=== PATIENT | female | born 1935 | race African-American/Black ===

== ENCOUNTER 2018-03-11 08:40 | Emergency (ER) | payer OTHER, MEDICAID ==
[~2018-03-11] VITALS: Ht 162.6 cm; Wt 65.0 kg
[~2018-03-11 08:40] MED LIST: ALLOPURINOL; ASA; AZOR; COLCHICINE; HCTZ; LIPITOR; PLAQUENIL; PROTONIX; TRAMADOL
[2018-03-11] MEDS ORDERED: KETOROLAC 30MG/ML VIAL IM ONE (11:00)
[2018-03-11 11:54] VITALS: BP 116/54
== END 2018-03-11 11:55 | disposition home or self-care (01) ==
LOC: ER 09:50
DX: M10.9 Gout, unspecified (principal); I10 Essential (primary) hypertension; Z88.0 Allergy status to penicillin; Z88.6 Allergy status to analgesic agent; Z90.710 Acquired absence of both cervix and uterus; Z98.890 Other specified postprocedural states; Z87.891 Personal history of nicotine dependence; Z79.899 Other long term (current) drug therapy
CPT/HCPCS: 96372; 99283; J1885

== ENCOUNTER 2019-03-18 10:27 | Inpatient (IN) | payer OTHER, MEDICAID ==
[~2019-03-18] VITALS: Ht 162.6 cm; Wt 72.3 kg
[2019-03-18] MEDS ORDERED: ALBUTEROL (0.083%) 2.5MG/3ML NEB HHN STA (10:44)
[2019-03-18] MEDS ORDERED: METHYLPREDNISOLONE SOD SUCC 125 MG/2 ML VIAL IV STA (10:44)
[2019-03-18] MEDS ORDERED: IPRATROPIUM BROMIDE (0.02%) 0.5MG/2.5ML NEB HHN STA (10:44)
[2019-03-18] MEDS ORDERED: SODIUM CHLORIDE 0.9% 1000ML BAG (SEPSIS BOLUS) IV ONE (10:45)
[2019-03-18] MEDS ORDERED: LEVOFLOXACIN 750MG PREMIX 150 ML IV ONE (10:45)
[2019-03-18] MEDS ORDERED: ASPIRIN 81MG TABLET PO ONE (10:45)
[2019-03-18] MEDS ORDERED: NITROGLYCERIN OINT 1GM/INCH UDPKT TD ONE (11:45)
[2019-03-18] MEDS ORDERED: FUROSEMIDE 40MG/4ML VIAL IV ONE (11:45)
[2019-03-18 11:49] LABS: PROTHROMBIN TIME 10.6 sec (9.6-11.0)
[2019-03-18 11:54] LABS: BASOPHILS % 1.2 % (0.0-2.0); EOSINOPHILS % 2.9 % (0.0-5.0); HEMATOCRIT. 32.3 % (36.0-48.0); HEMOGLOBIN. 10.1 g/dL (12.0-16.0); LYMPHOCYTES % 15.1 % (20.0-50.0); MEAN CORPUSCULAR HEMOGLOBIN 22.1 pg (28.0-32.0); MEAN CORPUSCULAR VOLUME 70.5 fL (81.0-99.0); MEAN PLATELET VOLUME 10.9 fl (7.4-10.4); MONOCYTES % 7.1 % (2.0-8.0); NEUTROPHILS % 73.7 % (40.0-76.0); PLATELET 383 x1000/uL (130-400); RED BLOOD CELL COUNT 4.59 mill/uL (4.2-5.4); RED CELL DISTRIBUTION WIDTH 15.7 % (11.6-14.6)
[2019-03-18 11:59] LABS: CHLORIDE 106 mEq/L (98-107)
[2019-03-18] MEDS ORDERED: DIPHENHYDRAMINE 50MG/ML VIAL IV PRN (16:30)
[2019-03-18] MEDS ORDERED: ACETAMINOPHEN 325MG TABLET PO PRN ×2 (16:30→21:30)
[2019-03-18] MEDS ORDERED: HYDROCODONE/ACETAMINOPHEN 5/325MG TABLET PO PRN ×2 (16:30→21:30)
[2019-03-18] MEDS ORDERED: DILTIAZEM HCL 5MG/ML 5ML VIAL IV SCH (16:30)
[2019-03-18] MEDS ORDERED: LEVOFLOXACIN 500MG PREMIX 100 ML IV SCH (16:30)
[2019-03-18] MEDS ORDERED: DILTIAZEM HCL 125 MG in DEXT 5% WATER 100 ML IV PRN ×2 (16:30→22:30)
[2019-03-18] MEDS ORDERED: CLONIDINE 0.1MG TABLET PO PRN ×2 (16:30→23:30)
[2019-03-18] MEDS ORDERED: DOCUSATE SODIUM 100MG CAPSULE PO PRN (16:30)
[2019-03-18] MEDS ORDERED: IPRATROPIUM/ALBUTEROL 0.5-3(2.5)MG/3ML NEB NEB PRN (16:30)
[2019-03-18] MEDS ORDERED: ONDANSETRON HCL 4MG/2ML INJ IV PRN (16:30)
[2019-03-18] MEDS ORDERED: MAGNESIUM/ALUMINUM HYDROXIDE/SIMETHICONE 30ML UDC PO PRN (16:30)
[2019-03-18] MEDS ORDERED: DILTIAZEM HCL 5MG/ML 5ML VIAL IV ONE (16:30)
[2019-03-18 17:20] LABS: BG BASE EXCESS -7.3 mmol/L (-2.0-2.0); BG CARBOXYHEMOGLOBIN 0.7 % (0.5-1.5); BG DEOXYHEMOGLOBIN 3.8 % (0.0-5.0); BG FRACTION INSPIRED OXYGEN 21; BG HCO3 ACT 15.1 mmol/L (22.0-26.0); BG METHEMOGLOBIN 0.3 % (0.0-1.5); BG OXYGEN SATURATION 96.2 % (92.0-98.5); BG OXYHEMOGLOBIN 95.2 % (94.0-97.0); BG PCO2 22.3 mmHg (35.0-45.0); BG PH 7.449 (7.350-7.450); BG PO2 86.8 mmHg (75.0-100.0); BG SAMPLE SITE RIGHT RADIAL; BG TOTAL HEMOGLOBIN 10.7 g/dL (12.0-18.0); BG VENT MODE ROOM AIR
[2019-03-18 17:49] LABS: CLARITY URINE CLEAR (CLEAR); COLOR URINE YELLOW (YELLOW); KETONES URINE NEGATIVE (NEGATIVE); LEUKOCYTE ESTERASE URINE NEGATIVE (NEGATIVE); NITRITE URINE NEGATIVE (NEGATIVE); OCCULT BLOOD URINE NEGATIVE (NEGATIVE); PROTEIN URINE 1+ (NEGATIVE); SPECIFIC GRAVITY URINE 1.006 (1.005-1.030); UROBILINOGEN URINE 0.2 E.U./dL (0.2-1.0)
[2019-03-18 17:58] LABS: *AMPHETAMINES SCREEN URINE NEGATIVE (NEGATIVE); *BARBITURATES SCREEN URINE NEGATIVE (NEGATIVE); *BENZODIAZEPINES SCREEN URINE NEGATIVE (NEGATIVE); *COCAINE SCREEN URINE NEGATIVE (NEGATIVE)
[2019-03-18 18:00] LABS: CANNABINOID URINE SCREEN NEGATIVE (NEGATIVE); METHADONE URINE SCREEN NEGATIVE (NEGATIVE); OPIATES URINE SCREEN NEGATIVE (NEGATIVE); PHENCYCLIDINE URINE SCREEN NEGATIVE (NEGATIVE)
[2019-03-18 18:48] VITALS: BP 185/73
[2019-03-18 19:39] VITALS: BP 112/39
[2019-03-18 19:50] VITALS: BP 178/76
[2019-03-18 20:00] VITALS: BP 168/71
[2019-03-18] MEDS: IPRATROPIUM/ALBUTEROL 0.5-3(2.5)MG/3ML NEB NEB SCH (20:50)
[2019-03-18] MEDS: BUDESONIDE 0.5MG/2ML NEB HHN SCH (20:50)
[2019-03-18] MEDS ORDERED: NA PHOS,M-B/NA PHOS,DI-BA ENEMA 118ML PR PRN (21:00)
[2019-03-18] MEDS ORDERED: DEXTROSE 50% WATER 50ML SYRINGE IV PRN (21:27)
[2019-03-18] MEDS: BLOOD SUGAR DIAGNOSTIC STRIP TEST SCH (21:38)
[2019-03-18] MEDS: FAMOTIDINE 20MG/2ML VIAL IV SCH (21:45)
[2019-03-18] MEDS: INSULIN LISPRO 100 UNITS/ML SUBCUT SCH (21:47)
[2019-03-18] MEDS: METHYLPREDNISOLONE SOD SUCC 40 MG/ML VIAL IV SCH (21:50)
[2019-03-18] MEDS: FUROSEMIDE 40MG/4ML VIAL IV SCH (21:56)
[2019-03-18 22:00] VITALS: BP 188/85
[2019-03-18] MEDS: ENOXAPARIN 80MG/0.8ML SYR SUBCUT SCH (23:10)
[2019-03-18 23:31] VITALS: BP 176/72
[2019-03-18] MEDS: DILTIAZEM HCL 30MG TABLET PO SCH (23:33)
[2019-03-19] VITALS (17 sets, daily range): BP systolic 56–173; BP diastolic 28–78
[2019-03-19] MEDS: IPRATROPIUM/ALBUTEROL 0.5-3(2.5)MG/3ML NEB NEB SCH ×4 (02:13→19:59)
[2019-03-19] MEDS: BLOOD SUGAR DIAGNOSTIC STRIP TEST SCH ×4 (06:17→21:10)
[2019-03-19] MEDS: METHYLPREDNISOLONE SOD SUCC 40 MG/ML VIAL IV SCH ×3 (06:20→21:40)
[2019-03-19] MEDS: DILTIAZEM HCL 30MG TABLET PO SCH ×2 (06:21→12:30)
[2019-03-19 08:07] LABS: BASOPHILS % 0.2 % (0.0-2.0); HEMATOCRIT. 28.7 % (36.0-48.0); LYMPHOCYTES % 8.4 % (20.0-50.0); MEAN CORPUSCULAR VOLUME 70.3 fL (81.0-99.0); MEAN PLATELET VOLUME 10.7 fl (7.4-10.4); MONOCYTES % 3.5 % (2.0-8.0); NEUTROPHILS % 87.9 % (40.0-76.0); PLATELET 357 x1000/uL (130-400); RED BLOOD CELL COUNT 4.08 mill/uL (4.2-5.4); RED CELL DISTRIBUTION WIDTH 15.9 % (11.6-14.6)
[2019-03-19] MEDS: ASPIRIN 81MG EC TABLET PO SCH (08:38)
[2019-03-19] MEDS: FUROSEMIDE 40MG/4ML VIAL IV SCH ×2 (08:38→17:27)
[2019-03-19] MEDS: FAMOTIDINE 20MG/2ML VIAL IV SCH (08:38)
[2019-03-19] MEDS: INSULIN LISPRO 100 UNITS/ML SUBCUT SCH ×4 (08:39→21:37)
[2019-03-19 08:45] LABS: CHLORIDE 105 mEq/L (98-107)
[2019-03-19 08:52] LABS: HDL CHOLESTEROL 53 mg/dL (40-59)
[2019-03-19 09:00] LABS: LDL CHOLESTEROL 110 mg/dL (5-100)
[2019-03-19] MEDS ORDERED: LOSARTAN POTASSIUM 50 MG TABLET PO SCH (09:00)
[2019-03-19 09:01] LABS: CREATINE KINASE MB FRACTION 1.6 ng/mL (0.5-3.6)
[2019-03-19 09:02] LABS: CREATINE KINASE 158 IU/L (26-192); T4 FREE 1.09 ng/dL (0.76-1.46)
[2019-03-19] MEDS: BUDESONIDE 0.5MG/2ML NEB HHN SCH ×2 (09:14→20:00)
[2019-03-19] MEDS: LEVOFLOXACIN 250MG PREMIX 50 ML IV SCH (12:30)
[2019-03-19] MEDS ORDERED: TRAMADOL 50MG TABLET PO PRN (13:45)
[2019-03-19] MEDS ORDERED: REGADENOSON 0.4 MG/5 ML IV NR (13:45)
[2019-03-19] MEDS: DILTIAZEM HCL 60MG TABLET PO SCH ×2 (15:42→21:41)
[2019-03-19] MEDS ORDERED: ASPI-1393 PO (17:20)
[2019-03-19] MEDS ORDERED: AMLO5TAB88 PO (17:20)
[2019-03-19] MEDS ORDERED: VALS1TAB78 PO (17:20)
[2019-03-19] MEDS ORDERED: ATOR40TA70 PO (17:20)
[2019-03-19] MEDS: GUAIFENESIN 200MG/10ML SUGAR FREE UDC PO PRN (21:08)
[2019-03-19] MEDS: ENOXAPARIN 80MG/0.8ML SYR SUBCUT SCH (21:10)
[2019-03-19 21:48] LABS: CREATINE KINASE MB FRACTION 2.6 ng/mL (0.5-3.6)
[2019-03-20] VITALS (11 sets, daily range): BP systolic 123–159; BP diastolic 40–75
[2019-03-20] MEDS: DEXT 5%/0.45% NACL 1000ML 1,000 ML IV SCH ×2 (00:15→17:09)
[2019-03-20] MEDS: IPRATROPIUM/ALBUTEROL 0.5-3(2.5)MG/3ML NEB NEB SCH ×4 (01:45→20:30)
[2019-03-20 05:53] LABS: HEMATOCRIT. 27.9 % (36.0-48.0); HEMOGLOBIN. 8.7 g/dL (12.0-16.0); MEAN CORPUSCULAR HEMOGLOBIN 21.9 pg (28.0-32.0); MEAN CORPUSCULAR VOLUME 70.6 fL (81.0-99.0); MEAN PLATELET VOLUME 10.6 fl (7.4-10.4); PLATELET 341 x1000/uL (130-400); RED BLOOD CELL COUNT 3.95 mill/uL (4.2-5.4); RED CELL DISTRIBUTION WIDTH 15.6 % (11.6-14.6)
[2019-03-20] MEDS: DILTIAZEM HCL 60MG TABLET PO SCH (06:00)
[2019-03-20] MEDS: METHYLPREDNISOLONE SOD SUCC 40 MG/ML VIAL IV SCH ×3 (07:01→21:46)
[2019-03-20] MEDS: BLOOD SUGAR DIAGNOSTIC STRIP TEST SCH ×4 (07:06→21:46)
[2019-03-20] MEDS: INSULIN LISPRO 100 UNITS/ML SUBCUT SCH ×4 (07:06→21:00)
[2019-03-20] MEDS: BUDESONIDE 0.5MG/2ML NEB HHN SCH ×2 (07:42→20:30)
[2019-03-20] MEDS: FAMOTIDINE 20MG/2ML VIAL IV SCH (09:00)
[2019-03-20] MEDS: ASPIRIN 81MG EC TABLET PO SCH (09:00)
[2019-03-20 09:43] LABS: PLATELET ESTIMATE NORMAL
[2019-03-20] MEDS ORDERED: REGADENOSON 0.4 MG/5 ML IV ONE (11:37)
[2019-03-20] MEDS: LEVOFLOXACIN 250MG PREMIX 50 ML IV SCH (12:00)
[2019-03-20] MEDS: DILTIAZEM HCL 30MG TABLET PO SCH ×2 (14:55→21:46)
[2019-03-20] MEDS: ATORVASTATIN CALCIUM 40MG TABLET PO SCH (21:45)
[2019-03-20] MEDS: ENOXAPARIN 30MG/0.3ML SYR SUBCUT SCH (21:45)
[2019-03-21] VITALS (25 sets, daily range): BP systolic 93–172; BP diastolic 41–84
[2019-03-21] MEDS: DEXT 5%/0.45% NACL 1000ML 1,000 ML IV SCH ×2 (02:13→15:33)
[2019-03-21] MEDS: IPRATROPIUM/ALBUTEROL 0.5-3(2.5)MG/3ML NEB NEB SCH ×4 (02:24→21:14)
[2019-03-21] MEDS: METHYLPREDNISOLONE SOD SUCC 40 MG/ML VIAL IV SCH ×3 (06:10→21:23)
[2019-03-21] MEDS: DILTIAZEM HCL 30MG TABLET PO SCH ×3 (06:10→21:24)
[2019-03-21] MEDS: BLOOD SUGAR DIAGNOSTIC STRIP TEST SCH ×4 (06:41→20:59)
[2019-03-21] MEDS: INSULIN LISPRO 100 UNITS/ML SUBCUT SCH ×4 (07:20→20:48)
[2019-03-21 07:26] LABS: HEMATOCRIT. 27.2 % (36.0-48.0); HEMOGLOBIN. 8.5 g/dL (12.0-16.0); MEAN CORPUSCULAR HEMOGLOBIN 22.1 pg (28.0-32.0); MEAN CORPUSCULAR VOLUME 70.8 fL (81.0-99.0); PLATELET 300 x1000/uL (130-400); RED BLOOD CELL COUNT 3.84 mill/uL (4.2-5.4); RED CELL DISTRIBUTION WIDTH 15.5 % (11.6-14.6)
[2019-03-21] MEDS: BUDESONIDE 0.5MG/2ML NEB HHN SCH ×2 (07:32→21:13)
[2019-03-21] MEDS: ASPIRIN 81MG EC TABLET PO SCH (09:25)
[2019-03-21] MEDS: GUAIFENESIN 200MG/10ML SUGAR FREE UDC PO PRN (09:25)
[2019-03-21] MEDS: LORAZEPAM 0.5MG TABLET PO PRN ×2 (09:26→15:30)
[2019-03-21] MEDS: FAMOTIDINE 20MG/2ML VIAL IV SCH (09:28)
[2019-03-21] MEDS ORDERED: MIDODRINE HCL 2.5MG TABLET PO NR (10:00)
[2019-03-21] MEDS: LEVOFLOXACIN 250MG PREMIX 50 ML IV SCH (12:55)
[2019-03-21 13:26] LABS: PLATELET ESTIMATE NORMAL
[2019-03-21] MEDS: CLOPIDOGREL 75MG TABLET PO SCH (17:55)
[2019-03-21] MEDS: MIDODRINE HCL 2.5MG TABLET PO SCH (17:56)
[2019-03-21] MEDS: ATORVASTATIN CALCIUM 40MG TABLET PO SCH (20:58)
[2019-03-21] MEDS: ENOXAPARIN 30MG/0.3ML SYR SUBCUT SCH (20:59)
[2019-03-22] VITALS (9 sets, daily range): BP systolic 108–158; BP diastolic 53–77
[2019-03-22] MEDS: IPRATROPIUM/ALBUTEROL 0.5-3(2.5)MG/3ML NEB NEB SCH ×3 (01:56→14:13)
[2019-03-22] MEDS: DEXT 5%/0.45% NACL 1000ML 1,000 ML IV SCH (04:49)
[2019-03-22] MEDS: DILTIAZEM HCL 30MG TABLET PO SCH ×2 (06:29→12:37)
[2019-03-22] MEDS: BLOOD SUGAR DIAGNOSTIC STRIP TEST SCH ×2 (06:37→12:42)
[2019-03-22 07:26] LABS: HEMATOCRIT. 27.1 % (36.0-48.0); HEMOGLOBIN. 8.5 g/dL (12.0-16.0); MEAN CORPUSCULAR HEMOGLOBIN 22.1 pg (28.0-32.0); MEAN CORPUSCULAR VOLUME 70.3 fL (81.0-99.0); RED BLOOD CELL COUNT 3.85 mill/uL (4.2-5.4); RED CELL DISTRIBUTION WIDTH 15.4 % (11.6-14.6)
[2019-03-22 08:13] LABS: CHLORIDE 102 mEq/L (98-107)
[2019-03-22] MEDS: METHYLPREDNISOLONE SOD SUCC 40 MG/ML VIAL IV SCH (08:15)
[2019-03-22] MEDS: ASPIRIN 81MG EC TABLET PO SCH (08:17)
[2019-03-22] MEDS: MIDODRINE HCL 2.5MG TABLET PO SCH (08:17)
[2019-03-22] MEDS: GUAIFENESIN 200MG/10ML SUGAR FREE UDC PO PRN (08:17)
[2019-03-22] MEDS: CLOPIDOGREL 75MG TABLET PO SCH (08:17)
[2019-03-22] MEDS: INSULIN LISPRO 100 UNITS/ML SUBCUT SCH ×2 (08:19→12:37)
[2019-03-22 08:51] LABS: PLATELET 296 x1000/uL (130-400)
[2019-03-22 08:54] LABS: PLATELET ESTIMATE NORMAL
[2019-03-22] MEDS ORDERED: FAMOTIDINE 20MG TABLET PO SCH (09:00)
[2019-03-22] MEDS: BUDESONIDE 0.5MG/2ML NEB HHN SCH (10:34)
[2019-03-22] MEDS ORDERED: LEVOFLOXACIN 250MG TABLET PO SCH (12:00)
[2019-03-22] MEDS ORDERED: ALBU18HF2 IH (14:46)
[2019-03-22] MEDS ORDERED: LIP40 MT (14:46)
[2019-03-22] MEDS ORDERED: ASPI-1393 MT (14:46)
[2019-03-22] MEDS ORDERED: P20 PO (14:46)
[2019-03-22] MEDS ORDERED: CLOP75TA4 MT (14:46)
[2019-03-22] MEDS ORDERED: FAMO-135 MT (14:46)
[2019-03-22] MEDS ORDERED: PRED10TA MT (14:46)
[2019-03-22] MEDS ORDERED: P20 MT (14:46)
[2019-03-22] MEDS ORDERED: DILT30TA38 MT (14:59)
[2019-03-22] MEDS ORDERED: ENOXAPARIN 40MG/0.4ML SYR SUBCUT SCH (21:00)
== END 2019-03-22 16:55 | disposition home or self-care (01) | DRG 682 ==
LOC: ER 13:40 → 3WST 13:53 → ENRESERV 14:47 → SUPCPDRO 15:12
PROVIDERS: ADMIT Internal Medicine; ATTEND Internal Medicine
DX: N17.9 Acute kidney failure, unspecified (principal); I50.43 Acute on chronic combined systolic (congestive) and diastolic (congestive) heart failure; R65.10 Systemic inflammatory response syndrome (SIRS) of non-infectious origin without acute organ dysfunction; J45.901 Unspecified asthma with (acute) exacerbation; E87.3 Alkalosis; I31.3 Pericardial effusion (noninflammatory); I11.0 Hypertensive heart disease with heart failure; D63.8 Anemia in other chronic diseases classified elsewhere; E78.5 Hyperlipidemia, unspecified; I34.0 Nonrheumatic mitral (valve) insufficiency; I48.91 Unspecified atrial fibrillation; E11.9 Type 2 diabetes mellitus without complications; I27.20 Pulmonary hypertension, unspecified; I95.1 Orthostatic hypotension; M10.9 Gout, unspecified; J44.9 Chronic obstructive pulmonary disease, unspecified; I25.10 Atherosclerotic heart disease of native coronary artery without angina pectoris; Z86.73 Personal history of transient ischemic attack (TIA), and cerebral infarction without residual deficits; Z90.710 Acquired absence of both cervix and uterus; Z90.5 Acquired absence of kidney; Z79.4 Long term (current) use of insulin; Z79.899 Other long term (current) drug therapy; Z85.528 Personal history of other malignant neoplasm of kidney; Z87.891 Personal history of nicotine dependence; Z90.49 Acquired absence of other specified parts of digestive tract; Z88.0 Allergy status to penicillin; Z88.5 Allergy status to narcotic agent; Z88.1 Allergy status to other antibiotic agents
CPT/HCPCS: 36415; 36600; 71045; 71250; 76770; 78452; 78582; 80048; 80061; 80305; 81003; 82375; 82550; 82553; 82728; 82805; 82962; 83036; 83540; 83550; 83605; 83880; 84145; 84439; 84443; 84481; 84484; 84550; 87804; 93005; 93017; 93306; 93880; 93970; 94618; 94640; 94644; 99285; A9500; A9558; J1650; J1815; J1940; J1956; J2405; J2785; J2920; J2930; J3490; J7030; J7611; J7620; J7626

== ENCOUNTER 2019-03-23 09:46 | Inpatient (IN) | payer OTHER, MEDICAID ==
[~2019-03-23] VITALS: Ht 162.6 cm; Wt 69.9 kg
[~2019-03-23 09:46] MED LIST changes: +ALBU18HF2 IH; -ALLOPURINOL; +AMLO5TAB88 PO; -ASA; +ASPI-1393 MT; +ASPI-1393 PO; +ATOR40TA70 PO; -AZOR; +CLOP75TA4 MT; -COLCHICINE; +DILT30TA38 MT; +FAMO-135 MT; -HCTZ; +LIP40 MT; -LIPITOR; +P20 MT; +P20 PO; -PLAQUENIL; +PRED10TA MT; -PROTONIX; -TRAMADOL; +VALS1TAB78 PO
[2019-03-23 10:30] LABS: BG BASE EXCESS 2.2 mmol/L (-2.0-2.0); BG CARBOXYHEMOGLOBIN 0.3 % (0.5-1.5); BG FRACTION INSPIRED OXYGEN 28; BG HCO3 ACT 26.2 mmol/L (22.0-26.0); BG METHEMOGLOBIN 0.3 % (0.0-1.5); BG OXYHEMOGLOBIN 96.4 % (94.0-97.0); BG PCO2 38.2 mmHg (35.0-45.0); BG PH 7.454 (7.350-7.450); BG PO2 88.3 mmHg (75.0-100.0); BG SAMPLE SITE RIGHT RADIAL; BG VENT MODE NASAL CANNULA
[2019-03-23 12:27] LABS: BASOPHILS % 0.3 % (0.0-2.0); EOSINOPHILS % 0.5 % (0.0-5.0); HEMATOCRIT. 29.6 % (36.0-48.0); HEMOGLOBIN. 9.1 g/dL (12.0-16.0); LYMPHOCYTES % 9.2 % (20.0-50.0); MEAN CORPUSCULAR HEMOGLOBIN 21.4 pg (28.0-32.0); MEAN CORPUSCULAR VOLUME 69.6 fL (81.0-99.0); MEAN PLATELET VOLUME 10.2 fl (7.4-10.4); MONOCYTES % 8.3 % (2.0-8.0); NEUTROPHILS % 81.7 % (40.0-76.0); PLATELET 316 x1000/uL (130-400); RED BLOOD CELL COUNT 4.25 mill/uL (4.2-5.4); RED CELL DISTRIBUTION WIDTH 15.5 % (11.6-14.6)
[2019-03-23 12:33] LABS: CHLORIDE 104 mEq/L (98-107)
[2019-03-23] MEDS ORDERED: FUROSEMIDE 20MG/2ML VIAL IVP ONE (13:30)
[2019-03-23 14:06] LABS: PLATELET ESTIMATE NORMAL
[2019-03-23] MEDS ORDERED: CLONIDINE 0.1MG TABLET PO PRN (15:45)
[2019-03-23 16:00] VITALS: BP 114/74
[2019-03-23 17:27] VITALS: BP 139/67
[2019-03-23] MEDS: DILTIAZEM HCL 30MG TABLET PO SCH (18:35)
[2019-03-23] MEDS: METHYLPREDNISOLONE SOD SUCC 40 MG/ML VIAL IV SCH (18:35)
[2019-03-23 20:00] VITALS: BP 121/78
[2019-03-24] VITALS (7 sets, daily range): BP systolic 95–144; BP diastolic 47–94
[2019-03-24] MEDS: BUDESONIDE 0.5MG/2ML NEB HHN SCH ×3 (00:34→20:20)
[2019-03-24] MEDS: IPRATROPIUM/ALBUTEROL 0.5-3(2.5)MG/3ML NEB HHN PRN ×2 (00:35→20:21)
[2019-03-24] MEDS: DILTIAZEM HCL 30MG TABLET PO SCH ×4 (05:36→18:04)
[2019-03-24] MEDS ORDERED: CLOPIDOGREL 75MG TABLET PO SCH (09:00)
[2019-03-24] MEDS: METHYLPREDNISOLONE SOD SUCC 40 MG/ML VIAL IV SCH (09:15)
[2019-03-24] MEDS ORDERED: LEVOFLOXACIN 500MG TABLET PO SCH (11:00)
[2019-03-24] MEDS ORDERED: FUROSEMIDE 20MG/2ML VIAL IVP NR (11:45)
[2019-03-24] MEDS ORDERED: ALPRAZOLAM 0.5 MG TABLET PO NR (11:45)
[2019-03-24 15:51] LABS: HEMATOCRIT. 30.9 % (36.0-48.0); HEMOGLOBIN. 9.6 g/dL (12.0-16.0); MEAN CORPUSCULAR HEMOGLOBIN 21.7 pg (28.0-32.0); MEAN CORPUSCULAR VOLUME 69.9 fL (81.0-99.0); PLATELET 336 x1000/uL (130-400); RED BLOOD CELL COUNT 4.42 mill/uL (4.2-5.4); RED CELL DISTRIBUTION WIDTH 15.5 % (11.6-14.6)
[2019-03-24 16:48] LABS: PLATELET ESTIMATE NORMAL
[2019-03-25] MEDS ORDERED: LEVOFLOXACIN 250MG TABLET PO SCH (11:00)
== END 2019-03-24 21:55 | DRG 189 ==
LOC: ER 09:46 → 5WST 13:17 → EDBEDREQ 13:38 → ENRESERV 14:02
PROVIDERS: ADMIT Internal Medicine; ATTEND Internal Medicine
DX: J96.00 Acute respiratory failure, unspecified whether with hypoxia or hypercapnia (principal); I50.33 Acute on chronic diastolic (congestive) heart failure; J44.1 Chronic obstructive pulmonary disease with (acute) exacerbation; I11.0 Hypertensive heart disease with heart failure; I25.10 Atherosclerotic heart disease of native coronary artery without angina pectoris; E11.9 Type 2 diabetes mellitus without complications; I27.20 Pulmonary hypertension, unspecified; T38.0X5A Adverse effect of glucocorticoids and synthetic analogues, initial encounter; I65.29 Occlusion and stenosis of unspecified carotid artery; I48.0 Paroxysmal atrial fibrillation; Z79.02 Long term (current) use of antithrombotics/antiplatelets; Z90.5 Acquired absence of kidney; Z90.710 Acquired absence of both cervix and uterus; Y92.89 Other specified places as the place of occurrence of the external cause
CPT/HCPCS: 36415; 36600; 71045; 80048; 82375; 82805; 83880; 84484; 93005; 94640; 96374; 97162; 99291; J1940; J2920; J7620; J7626

== ENCOUNTER 2019-04-11 13:35 | Inpatient (IN) | payer OTHER, MEDICAID ==
[~2019-04-11] VITALS: Ht 162.6 cm; Wt 67.1 kg
[2019-04-11] MEDS ORDERED: SODIUM CHLORIDE 0.9% 1,000 ML IV ONE (14:01)
[2019-04-11 14:39] LABS: BASOPHILS % 0.2 % (0.0-2.0); EOSINOPHILS % 0.6 % (0.0-5.0); HEMATOCRIT. 25.6 % (36.0-48.0); HEMOGLOBIN. 8.3 g/dL (12.0-16.0); LYMPHOCYTES % 12.5 % (20.0-50.0); MEAN CORPUSCULAR HEMOGLOBIN 22.4 pg (28.0-32.0); MONOCYTES % 11.9 % (2.0-8.0); NEUTROPHILS % 74.8 % (40.0-76.0); PLATELET 255 x1000/uL (130-400); RED BLOOD CELL COUNT 3.71 mill/uL (4.2-5.4); RED CELL DISTRIBUTION WIDTH 17.7 % (11.6-14.6)
[2019-04-11 14:46] LABS: CHLORIDE 103 mEq/L (98-107); PROTHROMBIN TIME 10.6 sec (9.6-11.0)
[2019-04-11 15:22] LABS: PLATELET ESTIMATE NORMAL
[2019-04-11 15:50] LABS: CLARITY URINE CLEAR (CLEAR); COLOR URINE YELLOW (YELLOW); KETONES URINE NEGATIVE (NEGATIVE); LEUKOCYTE ESTERASE URINE 2+ (NEGATIVE); NITRITE URINE NEGATIVE (NEGATIVE); OCCULT BLOOD URINE NEGATIVE (NEGATIVE); PH URINE 7.5 (4.5-8.0); PROTEIN URINE 2+ (NEGATIVE); SPECIFIC GRAVITY URINE 1.013 (1.005-1.030); UROBILINOGEN URINE 0.2 E.U./dL (0.2-1.0)
[2019-04-11] MEDS ORDERED: LEVOFLOXACIN 750MG PREMIX 150 ML IV ONE (16:15)
[2019-04-11] MEDS ORDERED: NITROGLYCERIN OINT 1GM/INCH UDPKT TD ONE (16:15)
[2019-04-11] MEDS ORDERED: ACETAMINOPHEN 650MG SUPP PR PRN (16:30)
[2019-04-11] MEDS ORDERED: DOCUSATE SODIUM 100MG CAPSULE PO PRN (16:30)
[2019-04-11] MEDS ORDERED: IPRATROPIUM/ALBUTEROL 0.5-3(2.5)MG/3ML NEB NEB PRN (16:30)
[2019-04-11] MEDS ORDERED: LORAZEPAM 0.5MG TABLET PO PRN (16:30)
[2019-04-11] MEDS ORDERED: DIPHENHYDRAMINE 50MG/ML VIAL IV PRN (16:30)
[2019-04-11] MEDS ORDERED: LEVOFLOXACIN 500MG PREMIX 100 ML IV SCH (16:30)
[2019-04-11] MEDS ORDERED: ONDANSETRON HCL 4MG/2ML INJ IV PRN (16:30)
[2019-04-11] MEDS ORDERED: CLONIDINE 0.1MG TABLET PO PRN (16:30)
[2019-04-11] MEDS ORDERED: GUAIFENESIN 200MG/10ML SUGAR FREE UDC PO PRN (16:30)
[2019-04-11] MEDS ORDERED: MAGNESIUM/ALUMINUM HYDROXIDE/SIMETHICONE 30ML UDC PO PRN (16:30)
[2019-04-11] MEDS ORDERED: HYDROCODONE/ACETAMINOPHEN 5/325MG TABLET PO PRN (16:30)
[2019-04-11] MEDS ORDERED: NA PHOS,M-B/NA PHOS,DI-BA ENEMA 118ML PR PRN (16:30)
[2019-04-11] MEDS ORDERED: ACETAMINOPHEN 325MG TABLET PO PRN (16:30)
[2019-04-11 16:59] LABS: BG BASE EXCESS 0.7 mmol/L (-2.0-2.0); BG CARBOXYHEMOGLOBIN 0.2 % (0.5-1.5); BG DEOXYHEMOGLOBIN 1.5 % (0.0-5.0); BG FRACTION INSPIRED OXYGEN 28; BG HCO3 ACT 24.2 mmol/L (22.0-26.0); BG METHEMOGLOBIN 0.3 % (0.0-1.5); BG OXYGEN SATURATION 98.5 % (92.0-98.5); BG PCO2 34.3 mmHg (35.0-45.0); BG PH 7.467 (7.350-7.450); BG PO2 118.7 mmHg (75.0-100.0); BG SAMPLE SITE RIGHT BRACHIAL; BG TOTAL HEMOGLOBIN 8.6 g/dL (12.0-18.0); BG VENT MODE NASAL CANNULA
[2019-04-11] MEDS ORDERED: DEXTROSE 50% WATER 50ML SYRINGE IV PRN (17:30)
[2019-04-11] MEDS ORDERED: ASPIRIN 325MG EC TABLET PO ONE (19:00)
[2019-04-11] MEDS ORDERED: IPRATROPIUM/ALBUTEROL 0.5-3(2.5)MG/3ML NEB NEB SCH (19:00)
[2019-04-11] MEDS: METHYLPREDNISOLONE SOD SUCC 40 MG/ML VIAL IV SCH (19:00)
[2019-04-11] MEDS: BLOOD SUGAR DIAGNOSTIC STRIP TEST SCH (21:00)
[2019-04-11] MEDS: INSULIN LISPRO 100 UNITS/ML SUBCUT SCH (21:30)
[2019-04-11 22:00] VITALS: BP 122/77
[2019-04-11] MEDS ORDERED: FAMOTIDINE 20MG TABLET PO SCH (22:00)
[2019-04-11] MEDS ORDERED: P20 PO (22:36)
[2019-04-11] MEDS ORDERED: SENN-170 PO (22:36)
[2019-04-11] MEDS ORDERED: PULM25 HHN (22:36)
[2019-04-11] MEDS ORDERED: FERR325T6 PO (22:36)
[2019-04-11] MEDS ORDERED: DOCU-150 PO (22:36)
[2019-04-11 22:44] VITALS: BP 122/77
[2019-04-12] VITALS (7 sets, daily range): BP systolic 103–172; BP diastolic 62–81
[2019-04-12] MEDS ORDERED: BUDESONIDE 0.5MG/2ML NEB HHN SCH
[2019-04-12 00:52] LABS: CREATINE KINASE 48 IU/L (26-192)
[2019-04-12 01:30] LABS: CREATINE KINASE MB FRACTION < 1.0 ng/mL (0.5-3.6)
[2019-04-12] MEDS: METHYLPREDNISOLONE SOD SUCC 40 MG/ML VIAL IV SCH ×2 (03:13→13:42)
[2019-04-12] MEDS: BLOOD SUGAR DIAGNOSTIC STRIP TEST SCH ×2 (06:17→12:25)
[2019-04-12] MEDS: INSULIN LISPRO 100 UNITS/ML SUBCUT SCH ×2 (06:30→12:40)
[2019-04-12 07:32] LABS: HEMATOCRIT. 25.2 % (36.0-48.0); MEAN CORPUSCULAR HEMOGLOBIN 22.3 pg (28.0-32.0); MEAN CORPUSCULAR VOLUME 70.1 fL (81.0-99.0); MEAN PLATELET VOLUME 9.4 fl (7.4-10.4); PLATELET 259 x1000/uL (130-400); RED BLOOD CELL COUNT 3.59 mill/uL (4.2-5.4); RED CELL DISTRIBUTION WIDTH 17.5 % (11.6-14.6)
[2019-04-12 07:58] LABS: CHLORIDE 104 mEq/L (98-107)
[2019-04-12 08:13] LABS: CREATINE KINASE 44 IU/L (26-192); LDL CHOLESTEROL 92 mg/dL (5-100)
[2019-04-12 08:14] LABS: CREATINE KINASE MB FRACTION < 1.0 ng/mL (0.5-3.6); HDL CHOLESTEROL 74 mg/dL (40-59); T4 FREE 0.89 ng/dL (0.76-1.46)
[2019-04-12 08:23] LABS: *BARBITURATES SCREEN URINE NEGATIVE (NEGATIVE); *BENZODIAZEPINES SCREEN URINE NEGATIVE (NEGATIVE); *COCAINE SCREEN URINE NEGATIVE (NEGATIVE)
[2019-04-12 08:24] LABS: *AMPHETAMINES SCREEN URINE NEGATIVE (NEGATIVE); CANNABINOID URINE SCREEN NEGATIVE (NEGATIVE); OPIATES URINE SCREEN NEGATIVE (NEGATIVE); PHENCYCLIDINE URINE SCREEN NEGATIVE (NEGATIVE)
[2019-04-12 08:30] LABS: METHADONE URINE SCREEN NEGATIVE (NEGATIVE)
[2019-04-12] MEDS ORDERED: ASPIRIN 81MG TABLET PO SCH (09:00)
[2019-04-12 11:43] LABS: PLATELET ESTIMATE NORMAL
[2019-04-12 13:02] LABS: HEMATOCRIT 23.9 % (36.0-48.0); HEMOGLOBIN 7.7 g/dL (12.0-16.0)
[2019-04-12] MEDS ORDERED: DILTIAZEM HCL 30MG TABLET PO SCH (14:00)
[2019-04-12] MEDS ORDERED: LEVO500T2 MT (14:18)
[2019-04-12] MEDS ORDERED: P20 MT (14:18)
[2019-04-12] MEDS ORDERED: P20 PO (14:18)
[2019-04-12] MEDS ORDERED: PRED10TA MT (14:18)
[2019-04-12] MEDS ORDERED: LEVOFLOXACIN 250MG PREMIX 50 ML IV SCH (17:00)
== END 2019-04-12 17:59 | disposition home health service (06) | DRG 190 ==
LOC: ER 13:35 → 8WST 16:16 → EDBEDREQTM 16:21 → EDBEDREQ 16:21 → ENRESERV 18:56
PROVIDERS: ADMIT Internal Medicine; ATTEND Internal Medicine
DX: J44.1 Chronic obstructive pulmonary disease with (acute) exacerbation (principal); I50.33 Acute on chronic diastolic (congestive) heart failure; N39.0 Urinary tract infection, site not specified; I11.0 Hypertensive heart disease with heart failure; I34.0 Nonrheumatic mitral (valve) insufficiency; I48.0 Paroxysmal atrial fibrillation; E11.9 Type 2 diabetes mellitus without complications; I65.29 Occlusion and stenosis of unspecified carotid artery; I27.20 Pulmonary hypertension, unspecified; M19.90 Unspecified osteoarthritis, unspecified site; D64.9 Anemia, unspecified; J11.1 Influenza due to unidentified influenza virus with other respiratory manifestations; R06.03 Acute respiratory distress; Z86.73 Personal history of transient ischemic attack (TIA), and cerebral infarction without residual deficits; Z90.710 Acquired absence of both cervix and uterus; Z90.5 Acquired absence of kidney; Z88.0 Allergy status to penicillin; Z88.8 Allergy status to other drugs, medicaments and biological substances; Z79.82 Long term (current) use of aspirin; Z79.899 Other long term (current) drug therapy; Z87.891 Personal history of nicotine dependence
CPT/HCPCS: 36415; 36600; 71045; 80061; 80305; 81003; 82375; 82550; 82553; 82805; 82962; 83880; 84439; 84443; 84484; 85014; 85018; 85044; 87804; 93005; 93970; 96365; 96375; 99285; J1815; J1956; J2920; J7030

== ENCOUNTER 2019-06-11 11:02 | Inpatient (IN) | payer OTHER, MEDICAID ==
[~2019-06-11] VITALS: Ht 160 cm; Wt 71.2 kg
[~2019-06-11 11:02] MED LIST changes: -AMLO5TAB88 PO; -ASPI-1393 MT; -ASPI-1393 PO; +ASPI-1497 MT; -ATOR40TA70 PO; +DOCU-150 PO; -FAMO-135 MT; +FERR325T6 PO; +LEVO500T2 MT; -LIP40 MT; +PULM25 HHN; +SENN-170 PO; -VALS1TAB78 PO
[2019-06-11] MEDS ORDERED: SODIUM CHLORIDE 0.9% 500 ML IV ONE (12:06)
[2019-06-11 14:39] LABS: CLARITY URINE CLEAR (CLEAR); COLOR URINE DARK YELLOW (YELLOW); KETONES URINE NEGATIVE (NEGATIVE); LEUKOCYTE ESTERASE URINE TRACE (NEGATIVE); NITRITE URINE NEGATIVE (NEGATIVE); OCCULT BLOOD URINE NEGATIVE (NEGATIVE); PROTEIN URINE 2+ (NEGATIVE); SPECIFIC GRAVITY URINE 1.021 (1.005-1.030)
[2019-06-11] MEDS ORDERED: KETOROLAC 15MG/ML VIAL IV ONE (15:15)
[2019-06-11 15:25] LABS: CHLORIDE 107 mEq/L (98-107)
[2019-06-11 15:26] LABS: BASOPHILS % 0.7 % (0.0-2.0); EOSINOPHILS % 1.2 % (0.0-5.0); HEMATOCRIT. 26.1 % (36.0-48.0); HEMOGLOBIN. 8.4 g/dL (12.0-16.0); LYMPHOCYTES % 18.8 % (20.0-50.0); MEAN CORPUSCULAR HEMOGLOBIN 24.5 pg (28.0-32.0); MEAN CORPUSCULAR VOLUME 76.5 fL (81.0-99.0); MONOCYTES % 7.6 % (2.0-8.0); NEUTROPHILS % 71.7 % (40.0-76.0); PLATELET 307 x1000/uL (130-400); RED BLOOD CELL COUNT 3.42 mill/uL (4.2-5.4); RED CELL DISTRIBUTION WIDTH 20.7 % (11.6-14.6)
[2019-06-11 15:30] LABS: PHOSPHORUS 2.9 mg/dL (2.5-4.9)
[2019-06-11] MEDS ORDERED: LACTATED RINGERS 500 ML IV STA (16:15)
[2019-06-11] MEDS ORDERED: ACETAMINOPHEN 325MG TABLET PO ONE (16:15)
[2019-06-11] MEDS ORDERED: MAGNESIUM 2 G PREMIX 50 ML IV ONE (17:00)
[2019-06-11] MEDS ORDERED: SODIUM CHLORIDE 0.9% 1,000 ML IV ONE (19:26)
[2019-06-11 19:35] LABS: INR 1.2
[2019-06-11] MEDS ORDERED: IPRATROPIUM/ALBUTEROL 0.5-3(2.5)MG/3ML NEB HHN PRN (22:30)
[2019-06-11] MEDS ORDERED: ONDANSETRON HCL 4MG/2ML INJ IV PRN (22:30)
[2019-06-11] MEDS ORDERED: LEVOFLOXACIN 500MG PREMIX 100 ML IV SCH (23:00)
[2019-06-11] MEDS: LEVOFLOXACIN 250MG PREMIX 50 ML IV SCH (23:08)
[2019-06-11] MEDS: SODIUM CHLORIDE 0.9% 1,000 ML IV SCH (23:08)
[2019-06-12 04:12] LABS: BASOPHILS % 1.2 % (0.0-2.0); EOSINOPHILS % 1.7 % (0.0-5.0); HEMATOCRIT. 25.8 % (36.0-48.0); HEMOGLOBIN. 8.3 g/dL (12.0-16.0); LYMPHOCYTES % 19.3 % (20.0-50.0); MEAN CORPUSCULAR HEMOGLOBIN 24.5 pg (28.0-32.0); MEAN CORPUSCULAR VOLUME 76.2 fL (81.0-99.0); MEAN PLATELET VOLUME 9.6 fl (7.4-10.4); MONOCYTES % 8.2 % (2.0-8.0); NEUTROPHILS % 69.6 % (40.0-76.0); PLATELET 380 x1000/uL (130-400); RED BLOOD CELL COUNT 3.38 mill/uL (4.2-5.4); RED CELL DISTRIBUTION WIDTH 21.1 % (11.6-14.6)
[2019-06-12 04:29] LABS: CHLORIDE 111 mEq/L (98-107)
[2019-06-12 04:38] LABS: T4 FREE 1.12 ng/dL (0.76-1.46)
[2019-06-12] MEDS: SODIUM CHLORIDE 0.9% 1,000 ML IV SCH ×2 (11:42→17:07)
[2019-06-12] MEDS: ASPIRIN 81MG EC TABLET PO SCH (11:42)
[2019-06-12 15:30] VITALS: BP 120/70
[2019-06-12] MEDS ORDERED: ACETAMINOPHEN 325MG TABLET PO PRN (16:15)
[2019-06-12] MEDS ORDERED: IPRATROPIUM/ALBUTEROL 0.5-3(2.5)MG/3ML NEB HHN PRN (16:15)
[2019-06-12] MEDS ORDERED: CLONIDINE 0.1MG TABLET PO PRN (16:15)
[2019-06-12] MEDS: ENOXAPARIN 40MG/0.4ML SYR SUBCUT SCH (17:06)
[2019-06-12 20:00] VITALS: BP 113/79
[2019-06-12] MEDS ORDERED: PANT40SU PO (20:42)
[2019-06-12] MEDS ORDERED: ALLO100T MT (20:42)
[2019-06-12] MEDS: ACETAMINOPHEN 325MG TABLET PO PRN (21:23)
[2019-06-12 23:49] LABS: CREATINE KINASE MB FRACTION 1.2 ng/mL (0.5-3.6)
[2019-06-13] MEDS: LEVOFLOXACIN 250MG PREMIX 50 ML IV SCH (02:08)
[2019-06-13 04:00] VITALS: BP 114/81
[2019-06-13 06:00] VITALS: BP 144/65
[2019-06-13 07:18] LABS: BASOPHILS % 0.9 % (0.0-2.0); EOSINOPHILS % 1.5 % (0.0-5.0); HEMATOCRIT. 27.3 % (36.0-48.0); HEMOGLOBIN. 8.6 g/dL (12.0-16.0); LYMPHOCYTES % 19.5 % (20.0-50.0); MEAN CORPUSCULAR VOLUME 75.7 fL (81.0-99.0); MONOCYTES % 8.5 % (2.0-8.0); NEUTROPHILS % 69.6 % (40.0-76.0); PLATELET 359 x1000/uL (130-400); RED CELL DISTRIBUTION WIDTH 21.1 % (11.6-14.6)
[2019-06-13 07:57] LABS: CHLORIDE 111 mEq/L (98-107)
[2019-06-13 08:00] VITALS: BP 165/40
[2019-06-13 08:06] LABS: LDL CHOLESTEROL 91 mg/dL (5-100)
[2019-06-13 08:07] LABS: CREATINE KINASE 138 IU/L (26-192); CREATINE KINASE MB FRACTION 1.8 ng/mL (0.5-3.6); HDL CHOLESTEROL 33 mg/dL (40-59)
[2019-06-13] MEDS: ASPIRIN 81MG EC TABLET PO SCH (09:35)
[2019-06-13 12:00] VITALS: BP 124/88
[2019-06-13] MEDS: ACETAMINOPHEN 325MG TABLET PO PRN (13:57)
[2019-06-13] MEDS: SODIUM CHLORIDE 0.9% 1,000 ML IV SCH (14:21)
[2019-06-13 16:00] VITALS: BP 118/79
[2019-06-13] MEDS: ENOXAPARIN 40MG/0.4ML SYR SUBCUT SCH (17:00)
[2019-06-13 18:00] VITALS: BP 118/79
[2019-06-14] VITALS (7 sets, daily range): BP systolic 112–165; BP diastolic 67–85
[2019-06-14] MEDS: ASPIRIN 81MG EC TABLET PO SCH (08:21)
[2019-06-14] MEDS ORDERED: LEVOFLOXACIN 250MG TABLET PO SCH (11:00)
[2019-06-14] MEDS: ENOXAPARIN 40MG/0.4ML SYR SUBCUT SCH (17:00)
[2019-06-14] MEDS: SODIUM CHLORIDE 0.9% 1,000 ML IV SCH (17:01)
== END 2019-06-14 18:05 | DRG 190 ==
LOC: ER 11:26 → 6WST 16:55 → EDBEDREQ 16:59 → ENRESERV 06-12 13:55
PROVIDERS: ADMIT Internal Medicine; ATTEND Internal Medicine
DX: J44.1 Chronic obstructive pulmonary disease with (acute) exacerbation (principal); I50.33 Acute on chronic diastolic (congestive) heart failure; E43 Unspecified severe protein-calorie malnutrition; N39.0 Urinary tract infection, site not specified; E87.2 Acidosis; D64.9 Anemia, unspecified; I11.0 Hypertensive heart disease with heart failure; E11.9 Type 2 diabetes mellitus without complications; F03.90 Unspecified dementia, unspecified severity, without behavioral disturbance, psychotic disturbance, mood disturbance, and anxiety; Z86.73 Personal history of transient ischemic attack (TIA), and cerebral infarction without residual deficits; Z88.0 Allergy status to penicillin; Z88.8 Allergy status to other drugs, medicaments and biological substances; Z79.899 Other long term (current) drug therapy; Z79.82 Long term (current) use of aspirin
CPT/HCPCS: 36415; 71045; 80053; 80061; 81003; 82550; 82553; 82962; 83605; 83735; 83880; 84100; 84439; 84443; 84484; 85025; 93005; 94640; 97162; 99285; J1650; J1885; J1956; J3475; J7030

== ENCOUNTER 2019-08-12 10:56 | Inpatient (IN) | payer OTHER ==
[~2019-08-12] VITALS: Ht 162.6 cm; Wt 50.8 kg
[~2019-08-12 10:56] MED LIST changes: +ALLO100T MT; +PANT40SU PO
[2019-08-12] MEDS ORDERED: IPRATROPIUM BROMIDE (0.02%) 0.5MG/2.5ML NEB HHN STA (11:01)
[2019-08-12] MEDS ORDERED: METHYLPREDNISOLONE SOD SUCC 125 MG/2 ML VIAL IV STA (11:01)
[2019-08-12] MEDS ORDERED: SODIUM CHLORIDE 0.9% 1,000 ML IV ONE (11:12)
[2019-08-12] MEDS ORDERED: MAGNESIUM 2 G PREMIX 50 ML IV ONE (11:15)
[2019-08-12 11:21] LABS: BASOPHILS % 0.8 % (0.0-2.0); EOSINOPHILS % 1.8 % (0.0-5.0); HEMATOCRIT. 35.4 % (36.0-48.0); HEMOGLOBIN. 11.2 g/dL (12.0-16.0); LYMPHOCYTES % 23.6 % (20.0-50.0); MEAN CORPUSCULAR HEMOGLOBIN 22.8 pg (28.0-32.0); MEAN CORPUSCULAR VOLUME 71.8 fL (81.0-99.0); MEAN PLATELET VOLUME 10.7 fl (7.4-10.4); NEUTROPHILS % 62.8 % (40.0-76.0); PLATELET 226 x1000/uL (130-400); RED BLOOD CELL COUNT 4.94 mill/uL (4.2-5.4); RED CELL DISTRIBUTION WIDTH 18.4 % (11.6-14.6)
[2019-08-12 11:25] LABS: CHLORIDE 107 mEq/L (98-107)
[2019-08-12] MEDS ORDERED: ALBUTEROL (0.083%) 2.5MG/3ML NEB HHN SCH (11:30)
[2019-08-12] MEDS ORDERED: LEVOFLOXACIN 500MG PREMIX 100 ML IV ONE (12:00)
[2019-08-12 12:07] LABS: INR 1.1
[2019-08-12 12:26] LABS: BG BASE EXCESS -4.7 mmol/L (-2.0-2.0); BG BILEVEL POS AIRWAY PRESSURE 15/5; BG CARBOXYHEMOGLOBIN 0.3 % (0.5-1.5); BG DEOXYHEMOGLOBIN 0.3 % (0.0-5.0); BG HCO3 ACT 18.7 mmol/L (22.0-26.0); BG METHEMOGLOBIN 0.3 % (0.0-1.5); BG OXYGEN SATURATION 99.7 % (92.0-98.5); BG OXYHEMOGLOBIN 99.1 % (94.0-97.0); BG PCO2 29.1 mmHg (35.0-45.0); BG PH 7.425 (7.350-7.450); BG PO2 483.2 mmHg (75.0-100.0); BG SAMPLE SITE RIGHT RADIAL; BG TOTAL HEMOGLOBIN 10.9 g/dL (12.0-18.0); BG VENT MODE MASK - BIPAP; BG VENT RATE 16 set
[2019-08-12] MEDS ORDERED: MAGNESIUM/ALUMINUM HYDROXIDE/SIMETHICONE 30ML UDC PO PRN (13:30)
[2019-08-12] MEDS ORDERED: ZOLPIDEM TARTRATE 5MG TABLET PO PRN (13:30)
[2019-08-12] MEDS ORDERED: IPRATROPIUM/ALBUTEROL 0.5-3(2.5)MG/3ML NEB NEB PRN (13:30)
[2019-08-12] MEDS ORDERED: CLONIDINE 0.1MG TABLET PO PRN (13:30)
[2019-08-12] MEDS ORDERED: GUAIFENESIN 200MG/10ML SUGAR FREE UDC PO PRN (13:30)
[2019-08-12] MEDS ORDERED: TRAMADOL 50MG TABLET PO PRN (13:30)
[2019-08-12] MEDS ORDERED: ONDANSETRON HCL 4MG/2ML INJ IV PRN (13:30)
[2019-08-12] MEDS ORDERED: ENOXAPARIN 40MG/0.4ML SYR SUBCUT SCH (13:30)
[2019-08-12] MEDS ORDERED: DOCUSATE SODIUM 100MG CAPSULE PO PRN (13:30)
[2019-08-12] MEDS: GUAIFENESIN/DM 600MG/30MG ER TAB 12HR PO SCH (13:47)
[2019-08-12] MEDS ORDERED: AZITHROMYCIN 500 MG in DEXT 5% WATER 250 ML IV NR (14:45)
[2019-08-12] MEDS: SILDENAFIL CITRATE 20MG TABLET PO SCH ×2 (14:48→22:16)
[2019-08-12 14:49] LABS: FOLIC ACID (FOLATE) SERUM 18.7 ng/mL (>5.38)
[2019-08-12 14:58] LABS: CREATINE KINASE 153 IU/L (26-192)
[2019-08-12 14:59] LABS: CREATINE KINASE MB FRACTION 1.6 ng/mL (0.5-3.6)
[2019-08-12 15:50] LABS: CLARITY URINE CLEAR (CLEAR); COLOR URINE YELLOW (YELLOW); KETONES URINE NEGATIVE (NEGATIVE); LEUKOCYTE ESTERASE URINE NEGATIVE (NEGATIVE); NITRITE URINE NEGATIVE (NEGATIVE); OCCULT BLOOD URINE NEGATIVE (NEGATIVE); PH URINE 5.5 (4.5-8.0); PROTEIN URINE 2+ (NEGATIVE); SPECIFIC GRAVITY URINE 1.013 (1.005-1.030)
[2019-08-12 17:00] VITALS: BP 98/64
[2019-08-12 18:26] VITALS: BP 98/64
[2019-08-12] MEDS: METHYLPREDNISOLONE SOD SUCC 125 MG/2 ML VIAL IV SCH (19:54)
[2019-08-12] MEDS: FAMOTIDINE 20MG TABLET PO SCH (19:55)
[2019-08-12] MEDS: ENOXAPARIN 30MG/0.3ML SYR SUBCUT SCH (19:55)
[2019-08-12] MEDS: IPRATROPIUM/ALBUTEROL 0.5-3(2.5)MG/3ML NEB HHN SCH ×2 (19:58→23:53)
[2019-08-12] MEDS: FUROSEMIDE 40MG/4ML VIAL IVP SCH (19:58)
[2019-08-12] MEDS: SPIRONOLACTONE 25MG TABLET PO SCH (19:59)
[2019-08-12 20:31] VITALS: BP 175/70
[2019-08-12] MEDS ORDERED: CEFTRIAXONE 1 G PREMIX 50 ML IV SCH (21:00)
[2019-08-13] VITALS (7 sets, daily range): BP systolic 99–162; BP diastolic 42–69
[2019-08-13 00:28] LABS: CREATINE KINASE 133 IU/L (26-192)
[2019-08-13 00:29] LABS: CREATINE KINASE MB FRACTION 1.8 ng/mL (0.5-3.6)
[2019-08-13] MEDS: IPRATROPIUM/ALBUTEROL 0.5-3(2.5)MG/3ML NEB HHN SCH ×5 (04:39→20:28)
[2019-08-13] MEDS: METHYLPREDNISOLONE SOD SUCC 125 MG/2 ML VIAL IV SCH ×3 (05:22→20:51)
[2019-08-13] MEDS: SILDENAFIL CITRATE 20MG TABLET PO SCH ×3 (05:22→20:51)
[2019-08-13] MEDS: GUAIFENESIN/DM 600MG/30MG ER TAB 12HR PO SCH ×2 (08:54→20:51)
[2019-08-13] MEDS: FUROSEMIDE 40MG/4ML VIAL IVP SCH ×2 (08:54→20:51)
[2019-08-13] MEDS: ASPIRIN 325MG EC TABLET PO SCH (08:54)
[2019-08-13] MEDS: FAMOTIDINE 20MG TABLET PO SCH (08:54)
[2019-08-13] MEDS: SPIRONOLACTONE 25MG TABLET PO SCH ×2 (09:02→20:51)
[2019-08-13] MEDS ORDERED: AZITHROMYCIN 500 MG in DEXT 5% WATER 250 ML IV SCH (15:00)
[2019-08-13] MEDS: CEFTRIAXONE 1 G PREMIX 50 ML IV SCH (18:44)
[2019-08-13] MEDS: ENOXAPARIN 30MG/0.3ML SYR SUBCUT SCH (20:51)
[2019-08-14] VITALS: BP 115/60
[2019-08-14 04:00] VITALS: BP 106/91
[2019-08-14] MEDS: IPRATROPIUM/ALBUTEROL 0.5-3(2.5)MG/3ML NEB HHN SCH ×6 (04:21→20:32)
[2019-08-14] MEDS: SILDENAFIL CITRATE 20MG TABLET PO SCH ×3 (05:55→21:53)
[2019-08-14] MEDS: METHYLPREDNISOLONE SOD SUCC 125 MG/2 ML VIAL IV SCH ×3 (05:55→21:52)
[2019-08-14 08:20] VITALS: BP 102/73
[2019-08-14] MEDS: FUROSEMIDE 40MG/4ML VIAL IVP SCH ×2 (10:37→21:52)
[2019-08-14] MEDS: ASPIRIN 325MG EC TABLET PO SCH (10:38)
[2019-08-14] MEDS: SPIRONOLACTONE 25MG TABLET PO SCH ×2 (10:38→21:53)
[2019-08-14] MEDS: GUAIFENESIN/DM 600MG/30MG ER TAB 12HR PO SCH ×2 (10:38→21:52)
[2019-08-14] MEDS: AZITHROMYCIN 500 MG TABLET PO SCH (10:38)
[2019-08-14] MEDS: FAMOTIDINE 20MG TABLET PO SCH (10:42)
[2019-08-14 11:38] VITALS: BP 105/70
[2019-08-14 15:44] VITALS: BP 92/53
[2019-08-14] MEDS: CEFTRIAXONE 1 G PREMIX 50 ML IV SCH (18:11)
[2019-08-14 20:00] VITALS: BP 151/66
[2019-08-14] MEDS: ENOXAPARIN 30MG/0.3ML SYR SUBCUT SCH (20:40)
[2019-08-15] VITALS: BP 102/60
[2019-08-15 04:00] VITALS: BP 98/73
[2019-08-15] MEDS: IPRATROPIUM/ALBUTEROL 0.5-3(2.5)MG/3ML NEB HHN SCH ×5 (04:14→16:37)
[2019-08-15] MEDS: SILDENAFIL CITRATE 20MG TABLET PO SCH ×2 (05:03→13:08)
[2019-08-15] MEDS: METHYLPREDNISOLONE SOD SUCC 125 MG/2 ML VIAL IV SCH ×2 (05:07→13:08)
[2019-08-15 08:36] VITALS: BP 94/68
[2019-08-15] MEDS: ASPIRIN 325MG EC TABLET PO SCH (08:55)
[2019-08-15] MEDS: GUAIFENESIN/DM 600MG/30MG ER TAB 12HR PO SCH (08:55)
[2019-08-15] MEDS: FUROSEMIDE 40MG/4ML VIAL IVP SCH (08:55)
[2019-08-15] MEDS: FAMOTIDINE 20MG TABLET PO SCH (08:55)
[2019-08-15] MEDS: SPIRONOLACTONE 25MG TABLET PO SCH (08:58)
[2019-08-15] MEDS: AZITHROMYCIN 500 MG TABLET PO SCH (08:59)
[2019-08-15 12:00] VITALS: BP 97/51
[2019-08-15 16:00] VITALS: BP 107/59
[2019-08-15] MEDS: CEFTRIAXONE 1 G PREMIX 50 ML IV SCH (17:35)
[2019-08-15 18:00] VITALS: BP 107/59
== END 2019-08-15 19:55 | disposition short-term general hospital (02) | DRG 291 ==
LOC: ER 10:59 → 6WST 12:15 → EDBEDREQSVC 12:28 → EDBEDREQ 12:28 → SUPCPDRO 13:20 → EDBEDREQSVC 15:23 → ENRESERV 16:07 → 6WST 08-13 19:20
PROVIDERS: ADMIT Internal Medicine; ATTEND Internal Medicine
PROC: 5A09357 Assistance with Respiratory Ventilation, Less than 24 Consecutive Hours, Continuous Positive Airway Pressure (ICD-10-PCS; principal; 2019-08-12)
DX: I11.0 Hypertensive heart disease with heart failure (principal); J18.9 Pneumonia, unspecified organism; J96.01 Acute respiratory failure with hypoxia; J44.1 Chronic obstructive pulmonary disease with (acute) exacerbation; F05 Delirium due to known physiological condition; I50.33 Acute on chronic diastolic (congestive) heart failure; I27.20 Pulmonary hypertension, unspecified; D63.8 Anemia in other chronic diseases classified elsewhere; F03.90 Unspecified dementia, unspecified severity, without behavioral disturbance, psychotic disturbance, mood disturbance, and anxiety; E11.9 Type 2 diabetes mellitus without complications; Z86.73 Personal history of transient ischemic attack (TIA), and cerebral infarction without residual deficits; D50.9 Iron deficiency anemia, unspecified; Z79.51 Long term (current) use of inhaled steroids; Z88.0 Allergy status to penicillin; Z88.1 Allergy status to other antibiotic agents
CPT/HCPCS: 36415; 36600; 71045; 80053; 80061; 81003; 82375; 82550; 82553; 82607; 82746; 82805; 83036; 83540; 83550; 83605; 83880; 84484; 85025; 93005; 93970; 94640; 94660; 99291; J0456; J0696; J1650; J1940; J1956; J2930; J3475; J7030; J7060

== ENCOUNTER 2019-09-29 20:54 | Emergency (ER) | payer OTHER ==
[~2019-09-29] VITALS: Ht 165.1 cm; Wt 53.0 kg
[~2019-09-29 20:54] MED LIST changes: -DOCU-150 PO; -FERR325T6 PO
[2019-09-29 22:44] LABS: CLARITY URINE CLEAR (CLEAR); COLOR URINE YELLOW (YELLOW); KETONES URINE NEGATIVE (NEGATIVE); LEUKOCYTE ESTERASE URINE 1+ (NEGATIVE); NITRITE URINE NEGATIVE (NEGATIVE); OCCULT BLOOD URINE NEGATIVE (NEGATIVE); PH URINE 8.5 (4.5-8.0); PROTEIN URINE TRACE (NEGATIVE); SPECIFIC GRAVITY URINE 1.007 (1.005-1.030)
[2019-09-29 23:02] LABS: BASOPHILS % 0.5 % (0.0-2.0); EOSINOPHILS % 2.4 % (0.0-5.0); HEMATOCRIT. 32.3 % (36.0-48.0); HEMOGLOBIN. 10.1 g/dL (12.0-16.0); LYMPHOCYTES % 15.6 % (20.0-50.0); MEAN CORPUSCULAR HEMOGLOBIN 21.9 pg (28.0-32.0); MEAN PLATELET VOLUME 10.1 fl (7.4-10.4); MONOCYTES % 9.4 % (2.0-8.0); NEUTROPHILS % 72.1 % (40.0-76.0); PLATELET 242 x1000/uL (130-400); RED BLOOD CELL COUNT 4.62 mill/uL (4.2-5.4); RED CELL DISTRIBUTION WIDTH 17.2 % (11.6-14.6)
[2019-09-29 23:06] LABS: CHLORIDE 101 mEq/L (98-107)
[2019-09-29] MEDS ORDERED: LORAZEPAM 0.5MG TABLET PO ONE (23:15)
[2019-09-29] MEDS ORDERED: KETOROLAC 15MG/ML VIAL IV ONE (23:15)
[2019-09-29 23:20] LABS: PLATELET ESTIMATE NORMAL
[2019-09-30] MEDS ORDERED: POTASSIUM CHLORIDE 20MEQ TABLET SR PO SCH (02:45)
[2019-09-30 03:40] VITALS: BP 112/75
== END 2019-09-30 03:54 | disposition home or self-care (01) ==
LOC: ER 20:54
DX: R06.02 Shortness of breath (principal); E87.6 Hypokalemia; R53.1 Weakness; R10.13 Epigastric pain; I11.0 Hypertensive heart disease with heart failure; I50.9 Heart failure, unspecified; E11.9 Type 2 diabetes mellitus without complications; Z86.73 Personal history of transient ischemic attack (TIA), and cerebral infarction without residual deficits; Z79.899 Other long term (current) drug therapy; Z88.0 Allergy status to penicillin
CPT/HCPCS: 36415; 71045; 80053; 81003; 83880; 84484; 85025; 93005; 99285; J1885

== ENCOUNTER 2019-12-02 15:49 | Inpatient (IN) | payer OTHER ==
[~2019-12-02] VITALS: Ht 160 cm; Wt 45.8 kg
[2019-12-02] MEDS ORDERED: SODIUM CHLORIDE 0.9% 1,000 ML IV ONE (16:15)
[2019-12-02 17:00] LABS: BASOPHILS % 0.8 % (0.0-2.0); EOSINOPHILS % 0.8 % (0.0-5.0); HEMATOCRIT. 35.1 % (36.0-48.0); HEMOGLOBIN. 11.1 g/dL (12.0-16.0); MEAN CORPUSCULAR HEMOGLOBIN 22.6 pg (28.0-32.0); MEAN CORPUSCULAR VOLUME 71.4 fL (81.0-99.0); MEAN PLATELET VOLUME 10.1 fl (7.4-10.4); NEUTROPHILS % 82.4 % (40.0-76.0); PLATELET 292 x1000/uL (130-400); RED BLOOD CELL COUNT 4.92 mill/uL (4.2-5.4); RED CELL DISTRIBUTION WIDTH 15.8 % (11.6-14.6)
[2019-12-02 17:06] LABS: CHLORIDE 102 mEq/L (98-107)
[2019-12-02 17:12] LABS: CLARITY URINE CLEAR (CLEAR); COLOR URINE YELLOW (YELLOW); KETONES URINE NEGATIVE (NEGATIVE); LEUKOCYTE ESTERASE URINE NEGATIVE (NEGATIVE); NITRITE URINE NEGATIVE (NEGATIVE); OCCULT BLOOD URINE NEGATIVE (NEGATIVE); PROTEIN URINE 2+ (NEGATIVE); SPECIFIC GRAVITY URINE 1.012 (1.005-1.030)
[2019-12-02 17:20] LABS: *AMPHETAMINES SCREEN URINE NEGATIVE (NEGATIVE); *BARBITURATES SCREEN URINE NEGATIVE (NEGATIVE); *BENZODIAZEPINES SCREEN URINE NEGATIVE (NEGATIVE); *COCAINE SCREEN URINE NEGATIVE (NEGATIVE); METHADONE URINE SCREEN NEGATIVE (NEGATIVE); OPIATES URINE SCREEN NEGATIVE (NEGATIVE)
[2019-12-02 17:21] LABS: CANNABINOID URINE SCREEN NEGATIVE (NEGATIVE)
[2019-12-02 17:26] LABS: PHENCYCLIDINE URINE SCREEN NEGATIVE (NEGATIVE)
[2019-12-02] MEDS ORDERED: CLONIDINE 0.1MG TABLET PO PRN (20:15)
[2019-12-02] MEDS ORDERED: DEXTROSE 50% WATER 50ML SYRINGE IV PRN (20:15)
[2019-12-02] MEDS ORDERED: ACETAMINOPHEN 650MG SUPP PR PRN ×2 (20:15)
[2019-12-02] MEDS ORDERED: ACETAMINOPHEN 650MG/20.3ML UDC GT PRN ×2 (20:15)
[2019-12-02] MEDS ORDERED: ONDANSETRON HCL 4MG/2ML INJ IV PRN (20:15)
[2019-12-02] MEDS ORDERED: MAGNESIUM/ALUMINUM HYDROXIDE/SIMETHICONE 30ML UDC PO PRN (20:15)
[2019-12-02] MEDS ORDERED: ACETAMINOPHEN 325MG TABLET PO PRN ×2 (20:15)
[2019-12-02] MEDS: BLOOD SUGAR DIAGNOSTIC STRIP TEST SCH (22:47)
[2019-12-02] MEDS: INSULIN LISPRO 100 UNITS/ML SUBCUT SCH (22:49)
[2019-12-02] MEDS: ENOXAPARIN 30MG/0.3ML SYR SUBCUT SCH (23:03)
[2019-12-03] VITALS (7 sets, daily range): BP systolic 90–137; BP diastolic 53–70
[2019-12-03 02:20] LABS: INR 1.1; PROTHROMBIN TIME 11.4 sec (9.6-11.0)
[2019-12-03 02:45] LABS: CREATINE KINASE 240 IU/L (26-192)
[2019-12-03 02:46] LABS: CREATINE KINASE MB FRACTION 1.1 ng/mL (0.5-3.6)
[2019-12-03] MEDS: BLOOD SUGAR DIAGNOSTIC STRIP TEST SCH ×4 (06:45→21:08)
[2019-12-03 07:00] LABS: BASOPHILS % 0.8 % (0.0-2.0); EOSINOPHILS % 1.3 % (0.0-5.0); HEMATOCRIT. 32.3 % (36.0-48.0); HEMOGLOBIN. 10.1 g/dL (12.0-16.0); LYMPHOCYTES % 20.8 % (20.0-50.0); MEAN CORPUSCULAR HEMOGLOBIN 22.7 pg (28.0-32.0); MEAN CORPUSCULAR VOLUME 72.4 fL (81.0-99.0); MEAN PLATELET VOLUME 11.3 fl (7.4-10.4); MONOCYTES % 8.2 % (2.0-8.0); NEUTROPHILS % 68.9 % (40.0-76.0); PLATELET 268 x1000/uL (130-400); RED BLOOD CELL COUNT 4.47 mill/uL (4.2-5.4); RED CELL DISTRIBUTION WIDTH 16.1 % (11.6-14.6)
[2019-12-03] MEDS: INSULIN LISPRO 100 UNITS/ML SUBCUT SCH ×4 (07:50→21:00)
[2019-12-03 07:51] LABS: CHLORIDE 104 mEq/L (98-107)
[2019-12-03] MEDS ORDERED: FUROSEMIDE 40MG/4ML VIAL IV SCH (09:00)
[2019-12-03 10:12] LABS: LDL CHOLESTEROL 181 mg/dL (5-100)
[2019-12-03 10:13] LABS: CREATINE KINASE 240 IU/L (26-192)
[2019-12-03 10:14] LABS: HDL CHOLESTEROL 59 mg/dL (40-59)
[2019-12-03 10:17] LABS: CREATINE KINASE MB FRACTION < 1.0 ng/mL (0.5-3.6)
[2019-12-03] MEDS: FAMOTIDINE 20MG/2ML VIAL IV SCH (12:48)
[2019-12-03] MEDS: ALLOPURINOL 100 MG TABLET PO SCH (12:49)
[2019-12-03] MEDS: ASPIRIN 81MG EC TABLET PO SCH (12:49)
[2019-12-03] MEDS: METOCLOPRAMIDE HCL 10MG/2ML VIAL IV SCH ×2 (12:49→16:41)
[2019-12-03] MEDS ORDERED: BUDESONIDE 0.25MG/2ML NEB HHN SCH (17:00)
[2019-12-03] MEDS: ENOXAPARIN 30MG/0.3ML SYR SUBCUT SCH (20:52)
[2019-12-03] MEDS ORDERED: FAMOTIDINE 20MG/2ML VIAL IV SCH (21:00)
[2019-12-03] MEDS ORDERED: SENNOSIDES 8.6MG TABLET PO SCH (21:00)
[2019-12-03] MEDS: ALBUTEROL (0.083%) 2.5MG/3ML NEB HHN PRN (22:19)
[2019-12-04] VITALS: BP 154/76
[2019-12-04] MEDS: METOCLOPRAMIDE HCL 10MG/2ML VIAL IV SCH ×4 (00:15→18:13)
[2019-12-04] MEDS: ALBUTEROL (0.083%) 2.5MG/3ML NEB HHN PRN (01:39)
[2019-12-04 04:00] VITALS: BP 179/71
[2019-12-04] MEDS: BLOOD SUGAR DIAGNOSTIC STRIP TEST SCH ×3 (06:28→18:12)
[2019-12-04] MEDS: INSULIN LISPRO 100 UNITS/ML SUBCUT SCH ×3 (07:31→17:50)
[2019-12-04 08:00] VITALS: BP 102/61
[2019-12-04] MEDS ORDERED: CLOPIDOGREL 75MG TABLET PO SCH (09:00)
[2019-12-04] MEDS: FAMOTIDINE 20MG/2ML VIAL IV SCH (09:04)
[2019-12-04] MEDS: ASPIRIN 81MG EC TABLET PO SCH (09:04)
[2019-12-04] MEDS: ALLOPURINOL 100 MG TABLET PO SCH (09:05)
[2019-12-04 12:00] VITALS: BP 98/64
[2019-12-04 13:43] VITALS: BP 102/61
[2019-12-04 15:13] LABS: BASOPHILS % 0.7 % (0.0-2.0); EOSINOPHILS % 3.6 % (0.0-5.0); HEMATOCRIT. 30.9 % (36.0-48.0); LYMPHOCYTES % 20.1 % (20.0-50.0); MEAN CORPUSCULAR HEMOGLOBIN 23.2 pg (28.0-32.0); MEAN CORPUSCULAR VOLUME 71.7 fL (81.0-99.0); MONOCYTES % 9.4 % (2.0-8.0); NEUTROPHILS % 66.2 % (40.0-76.0); RED BLOOD CELL COUNT 4.31 mill/uL (4.2-5.4); RED CELL DISTRIBUTION WIDTH 15.8 % (11.6-14.6)
[2019-12-04 15:27] LABS: CHLORIDE 102 mEq/L (98-107)
[2019-12-04 15:57] LABS: MEAN PLATELET VOLUME 9.7 fl (7.4-10.4)
[2019-12-04 20:10] VITALS: BP 101/68
== END 2019-12-04 20:15 | disposition short-term general hospital (02) | DRG 641 ==
LOC: ER 15:54 → 6WST 19:16 → ENRESERV 22:43
PROVIDERS: ADMIT Family Medicine; ATTEND Family Medicine
DX: E87.6 Hypokalemia (principal); I50.32 Chronic diastolic (congestive) heart failure; E86.0 Dehydration; K57.90 Diverticulosis of intestine, part unspecified, without perforation or abscess without bleeding; D63.8 Anemia in other chronic diseases classified elsewhere; E11.9 Type 2 diabetes mellitus without complications; E83.52 Hypercalcemia; I65.29 Occlusion and stenosis of unspecified carotid artery; I11.0 Hypertensive heart disease with heart failure; R10.9 Unspecified abdominal pain; R11.2 Nausea with vomiting, unspecified; I27.20 Pulmonary hypertension, unspecified; J44.9 Chronic obstructive pulmonary disease, unspecified; I50.9 Heart failure, unspecified; K29.70 Gastritis, unspecified, without bleeding; Z86.73 Personal history of transient ischemic attack (TIA), and cerebral infarction without residual deficits; Z88.9 Allergy status to unspecified drugs, medicaments and biological substances
CPT/HCPCS: 36415; 71045; 74018; 74176; 80053; 80061; 80305; 81003; 82550; 82553; 82962; 83036; 84484; 85025; 96372; 99285; J1650; J1940; J2765; J3490; J7030; J7626